=== PATIENT | female | born 1970 | race Caucasian/White ===

== ENCOUNTER 2017-06-29 13:38 | Emergency (ER) | payer MEDICAID, OTHER ==
[2017-06-29] MEDS: SOD CHLORIDE 0.9% 1,000 ML IV (15:11)
[2017-06-29] MEDS: METOCLOPRAMIDE 10 MG INJ IV (15:14)
[2017-06-29] MEDS: DIPHENHYDRAMINE 50 MG INJ IV (15:14)
[2017-06-29] MEDS: KETOROLAC 30 MG INJ IV (15:15)
== END 2017-06-29 17:47 | disposition home or self-care (01) ==
LOC: FTE 13:38
DX: R51 Headache (principal)
CPT/HCPCS: 70450; 81025; 96374; 96375; 99285-25